=== PATIENT | female | born 1965 | race Caucasian/White ===

== ENCOUNTER 2016-10-28 18:11 | Emergency (ER) | payer OTHER ==
[2016-10-28 18:15] VITALS: BP 178/97; PULSE 65; TEMP 97.9; BMI 27.1
[2016-10-28] MEDS ORDERED: SODIUM CHLORIDE 1,000 ML IV STA (19:15)
[2016-10-28] MEDS ORDERED: morphine CARPU-JECT 4 MG/1 ML DISP.SYRIN IVPUSH ONE (19:15)
[2016-10-28] MEDS ORDERED: ONDANSETRON 4 MG/2 ML VIAL IVPB ONE (19:15)
[2016-10-28] MEDS ORDERED: ONDANSETRON 4 MG/2 ML VIAL ONE (19:31)
[2016-10-28] MEDS ORDERED: morphine CARPU-JECT 4 MG/1 ML DISP.SYRIN ONE (19:31)
[2016-10-28 19:59] LABS: BASOPHIL 0.6 % (0-2.0); EOSINOPHIL 2.5 % (0-4.5); MCH 25.2 pg (25.7-33.7); MCHC 31.9 g/dl (32.0-36.0); MEAN PLT VOLUME 8.6 fl (7.5-11.1); NEUTROPHILS 52.3 % (42.8-82.8); PLATELET COUNT 257 K/MM3 (134-434); WHITE BLOOD COUNT 5.2 K/mm3 (4.0-10.0)
[2016-10-28 20:04] LABS: URINE APPEARANCE SLCLOUDY; URINE BILIRUBIN NEGATIVE (NEGATIVE); URINE BLOOD NEGATIVE (NEGATIVE); URINE COLOR LTYELLOW; URINE GLUCOSE (UA) NEGATIVE (NEGATIVE); URINE KETONE NEGATIVE (NEGATIVE); URINE NITRITE NEGATIVE (NEGATIVE); URINE PROTEIN NEGATIVE (NEGATIVE); URINE UROBILINOGEN NEGATIVE E.U./dl (0.2-1.0)
[2016-10-28 20:05] LABS: URINE LEUK ESTERASE 3+ (NEGATIVE)
[2016-10-28 20:09] LABS: INR 1.05 (0.82-1.09); PROTHROMBIN TIME (PATIENT) 11.6 SEC (9.98-11.88)
[2016-10-28 20:12] LABS: ACTIVATED PTT 33.1 SECONDS (26.9-34.4)
[2016-10-28 20:20] LABS: ALBUMIN 3.6 g/dl (3.4-5.0); ANION GAP 7 (8-16); BILIRUBIN,TOTAL 0.2 mg/dL (0.2-1.0); CALCIUM 8.8 mg/dL (8.5-10.1); CO2 29 mmol/L (21-32); CREATININE 0.5 mg/dL (0.55-1.02); GLUCOSE,RANDOM 115 mg/dL (74-106); SGOT/AST 29 U/L (15-37); SGPT/ALT 32 U/L (12-78); TOT PROT 7.6 g/dl (6.4-8.2)
[2016-10-28 20:23] LABS: ALK PHOS 85 U/L (45-117); TROPONIN I < 0.02 ng/ml (0.00-0.05)
--- NOTE | 2016-10-28 20:34 | PDOC ---
History of Present Illness - General History Source: Patient Exam Limitations: No Limitations - History of Present Illness Initial Comments: 10/28/16 20:42 The patient is a 51 year old female with a significant past medical history of diabetes, HTN, and HLD who presents to the ED with complaints of flu like symptoms for 3 weeks and abdominal pain since yesterday morning. Patient reports intermittent subjective fever, chills, generalized body aches, a dry cough, and chest congestion for three weeks. She states she developed generalized abdominal pain yesterday morning with 4 episodes of vomiting and diarrhea every half hour. Patient states vomiting has subsided. She also reports a loss of appetite associated with present symptoms. Denies chest pain or shortness of breath. Denies dysuria or changes in urinary output. Denies any other symptoms. <Bob Cabrera - Last Filed: 10/28/16 22:03> - General History Source: Patient, Family Exam Limitations: No Limitations <iJ Rubin - Last Filed: 10/28/16 22:22> - General Chief Complaint: Pain, Acute Stated Complaint: VOMITING/DIARRHEA Time Seen by Provider: 10/28/16 19:06 Past History <Bob Cabrera - Last Filed: 10/28/16 22:03> - Past Medical History Cardiac Disorders: Yes (MURMUR) Diabetes: Yes HTN: Yes - Psycho/Social/Smoking Cessation Hx Suicidal Ideation: No Smoking History: Never smoked Hx Alcohol Use: No Drug/Substance Use Hx: No <Ji Rubin - Last Filed: 10/28/16 22:22> - Past Medical History Allergies/Adverse Reactions: Allergies Allergy/AdvReac Type Severity Reaction Status Date / Time No Known Allergies Allergy Verified 10/28/16 18:15 Home Medications: Ambulatory Orders Ciprofloxacin [Cipro -] 500 mg PO Q12H #14 tablet 10/28/16 Naproxen [Naprosyn -] 500 mg PO BID PRN #20 tablet 10/28/16 Ondansetron HCl [Zofran] 4 mg PO Q8H PRN #12 tablet 10/28/16 Review of Systems - Review of Systems Able to Perform ROS?: Yes Comments:: 10/28/16 20:42 GENERAL/CONSTITUTIONAL: + fever, chills, body aches. No weakness. HEAD, EYES, EARS, NOSE AND THROAT: No change in vision. No ear pain or discharge. No sore throat. CARDIOVASCULAR: No chest pain or shortness of breath. RESPIRATORY: + cough, chest congestion. No wheezing or hemoptysis. GASTROINTESTINAL: + abdominal pain, nausea, vomiting, diarrhea. No constipation. GENITOURINARY: No dysuria, frequency, or change in urination. MUSCULOSKELETAL: No joint or muscle swelling or pain. No neck or back pain. SKIN: No rash NEUROLOGIC: No headache, vertigo, loss of consciousness, or change in strength/ sensation. ENDOCRINE: No increased thirst. No abnormal weight change. HEMATOLOGIC/LYMPHATIC: No anemia, easy bleeding, or history of blood clots. ALLERGIC/IMMUNOLOGIC: No hives or skin allergy. All Other Systems: Reviewed and Negative <Bob Cabrera - Last Filed: 10/28/16 22:03> *Physical Exam - Vital Signs Last Vital Signs Temp Pulse Resp BP Pulse Ox 97.9 F 65 18 178/97 98 10/28/16 18:12 10/28/16 18:12 10/28/16 18:12 10/28/16 18:12 10/28/16 18:12 - Physical Exam Comments: 10/28/16 20:43 GENERAL: Awake, alert, and fully oriented, in no acute distress HEAD: No signs of trauma EYES: PERRLA, EOMI, sclera anicteric, conjunctiva clear ENT: Auricles normal inspection, hearing grossly normal, nares patent, oropharynx clear without exudates. Moist mucosa NECK: Normal ROM, supple, no lymphadenopathy, JVD, or masses LUNGS: Breath sounds equal, clear to auscultation bilaterally. No wheezes, and no crackles HEART: Regular rate and rhythm, normal S1 and S2, no murmurs, rubs or gallops ABDOMEN:+ Diffuse abdominal tenderness. Soft, normoactive bowel sounds. No guarding, no rebound. No masses EXTREMITIES: Normal range of motion, no edema. No clubbing or cyanosis. No cords, erythema, or tenderness NEUROLOGICAL: Normal speech SKIN: Warm, Dry, normal turgor, no rashes or lesions noted. <Bob Cabrera - Last Filed: 10/28/16 22:03> - Vital Signs Last Vital Signs Temp Pulse Resp BP Pulse Ox 97.9 F 65 18 178/97 98 10/28/16 18:12 10/28/16 18:12 10/28/16 18:12 10/28/16 18:12 10/28/16 18:12 <Ji Rubin - Last Filed: 10/28/16 22:22> Heart Score/ECG Review #1 ECG reviewed & interpreted by me at: 19:45 10/28/16 20:35 NSR 62, no std/eugenio, normal axis, normal intervals, QTC 438 msec <Ji Rubin - Last Filed: 10/28/16 22:22> ED Treatment Course - LABORATORY CBC & Chemistry Diagram: 10/28/16 19:29 10/28/16 19:29 - ADDITIONAL ORDERS Additional order review: Laboratory Results 10/28/16 10/28/16 19:29 19:29 Sodium 140 Potassium 4.3 Chloride 104 Carbon Dioxide 29 Anion Gap 7 L BUN 7 Creatinine 0.5 L Creat Clearance w eGFR > 60 Random Glucose 115 H Calcium 8.8 Total Bilirubin 0.2 AST 29 ALT 32 Alkaline Phosphatase 85 Creatine Kinase 169 CK-MB (CK-2) 1.318 Troponin I < 0.02 Total Protein 7.6 Albumin 3.6 Lipase 168 Urine Color Ltyellow Urine Appearance Slcloudy Urine pH 7.0 Urine Protein Negative Urine Glucose (UA) Negative Urine Ketones Negative Urine Blood Negative Urine Nitrite Negative Urine Bilirubin Negative Urine Urobilinogen Negative Ur Leukocyte Esterase 3+ H Urine RBC 2 Urine WBC 112 Ur Epithelial Cells Moderate Urine Bacteria Rare 10/28/16 19:29 RBC 4.57 MCV 79.0 L MCHC 31.9 L RDW 15.0 MPV 8.6 Neutrophils % 52.3 Lymphocytes % 34.3 Monocytes % 10.3 H Eosinophils % 2.5 Basophils % 0.6 - RADIOLOGY Radiograph Interpretation: 10/28/16 20:50 RAD/CHEST X-RAY PORTABLE Impression: No acute disease. Reported by: James Gomes 10/28/16 22:03 CT/ABDOMEN & PELVIS CT WITH CONTR Impression: Limited study, essentially normal CT scan of the abdomen and pelvis with no evidence of acute pathology. Reported by: James Gomes - Medications Given in the ED: ED Medications Discontinued Medications Generic Name Dose Route Start Last Admin Trade Name Freq PRN Reason Stop Dose Admin Sodium Chloride 1,000 mls @ 1,000 mls/hr 10/28/16 19:15 10/28/16 19:37 Normal Saline - IV 10/28/16 20:14 1,000 mls/hr ASDIR STA Administration Morphine Sulfate 4 mg 10/28/16 19:15 10/28/16 19:37 Morphine Injection - IVPUSH 10/28/16 19:16 4 mg ONCE ONE Administration Ondansetron HCl 4 mg 10/28/16 19:15 10/28/16 19:37 Zofran Injection IVPB 10/28/16 19:16 4 mg ONCE ONE Administration <Bob Cabrera - Last Filed: 10/28/16 22:03> - LABORATORY CBC & Chemistry Diagram: 10/28/16 19:29 10/28/16 19:29 - ADDITIONAL ORDERS Additional order review: Laboratory Results 10/28/16 10/28/16 19:29 19:29 Sodium 140 Potassium 4.3 Chloride 104 Carbon Dioxide 29 Anion Gap 7 L BUN 7 Creatinine 0.5 L Creat Clearance w eGFR > 60 Random Glucose 115 H Calcium 8.8 Total Bilirubin 0.2 AST 29 ALT 32 Alkaline Phosphatase 85 Creatine Kinase 169 Troponin I < 0.02 Total Protein 7.6 Albumin 3.6 Lipase 168 Urine Color Ltyellow Urine Appearance Slcloudy Urine pH 7.0 Urine Protein Negative Urine Glucose (UA) Negative Urine Ketones Negative Urine Blood Negative Urine Nitrite Negative Urine Bilirubin Negative Urine Urobilinogen Negative Ur Leukocyte Esterase 3+ H 10/28/16 19:29 RBC 4.57 MCV 79.0 L MCHC 31.9 L RDW 15.0 MPV 8.6 Neutrophils % 52.3 Lymphocytes % 34.3 Monocytes % 10.3 H Eosinophils % 2.5 Basophils % 0.6 - RADIOLOGY Radiology Studies Ordered: Category Date Time Status ABDOMEN & PELVIS CT WITH CONTR [CT] Stat CT Scan 10/28/16 19:15 Ordered CHEST X-RAY PORTABLE* [RAD] Stat Radiology 10/28/16 19:15 Completed - Medications Given in the ED: ED Medications Discontinued Medications Generic Name Dose Route Start Last Admin Trade Name Freq PRN Reason Stop Dose Admin Sodium Chloride 1,000 mls @ 1,000 mls/hr 10/28/16 19:15 10/28/16 19:37 Normal Saline - IV 10/28/16 20:14 1,000 mls/hr ASDIR STA Administration Morphine Sulfate 4 mg 10/28/16 19:15 10/28/16 19:37 Morphine Injection - IVPUSH 10/28/16 19:16 4 mg ONCE ONE Administration Ondansetron HCl 4 mg 10/28/16 19:15 10/28/16 19:37 Zofran Injection IVPB 10/28/16 19:16 4 mg ONCE ONE Administration <CarynJi - Last Filed: 10/28/16 22:22> Medical Decision Making - Medical Decision Making 10/28/16 20:32 A portion of this note was documented by scribe services under my direction. I have reviewed the details of the note, within reason, and agree with the documentation with the following case summary and management plan written by me. Patient treated in the ED. Nursing notes are reviewed and incorporated into the medical decision-making. Vital signs reviewed. Peripheral IV access obtained by the nurse, laboratory studies are drawn and sent, reviewed and interpreted by myself. Vital Signs Temp Pulse Resp BP Pulse Ox 97.9 F 65 18 178/97 98 10/28/16 18:12 10/28/16 18:12 10/28/16 18:12 10/28/16 18:12 10/28/16 18:12 51-year-old female with past medical history of hypertension, diabetes, hyperlipidemia presents with diffuse abdominal pain since yesterday. Patient reports that the pain is constant and associated with nausea and vomiting. Also reports some loose diarrhea. Denies sick contacts or recent travels. Also endorses tactile fevers. Incidentally, states that the patient's been having some dry cough for 3 weeks that has not improved. Denies chest pain or shortness of breath. Differential includes appendicitis, gastroenteritis, colitis, diverticulitis, cystitis. We'll obtain a CAT scan, labs and treat symptoms. We'll also obtain a chest x-ray to rule out pneumonia. Reassess. 10/28/16 22:15 CBC, BMP 10/28/16 19:29 10/28/16 19:29 CMP Sodium 140 mmol/L (136-145) 10/28/16 19:29 Potassium 4.3 mmol/L (3.5-5.1) 10/28/16 19:29 Chloride 104 mmol/L (98-107) 10/28/16 19:29 Carbon Dioxide 29 mmol/L (21-32) 10/28/16 19:29 Anion Gap 7 (8-16) L 10/28/16 19:29 BUN 7 mg/dL (7-18) 10/28/16 19: Creatinine 0.5 mg/dL (0.55-1.02) L 10/28/16 19:29 Creat Clearance w eGFR > 60 (>60) 10/28/16 19:29 Random Glucose 115 mg/dL (74-106) H 10/28/16 19: Calcium 8.8 mg/dL (8.5-10.1) 10/28/16 19: Total Bilirubin 0.2 mg/dL (0.2-1.0) 10/28/16 19: AST 29 U/L (15-37) 10/28/16 19: ALT 32 U/L (12-78) 10/28/16 19: Alkaline Phosphatase 85 U/L (45-117) 10/28/16 19: Creatine Kinase 169 IU/L (26-192) 10/28/16 19: CK-MB (CK-2) 1.318 ng/ml (0.5-3.6) 10/28/16 19: Troponin I < 0.02 ng/ml (0.00-0.05) 10/28/16 19: Total Protein 7.6 g/dl (6.4-8.2) 10/28/16 19: Albumin 3.6 g/dl (3.4-5.0) 10/28/16 19: Lipase 168 U/L (73-393) 10/28/16 19:29 Urine Test Results Urine Color Ltyellow 10/28/16 19:29 Urine Appearance Slcloudy 10/28/16 19: Urine pH 7.0 (5.0-8.0) 10/28/16 19:29 Urine Protein Negative (NEGATIVE) 10/28/16 19: Urine Glucose (UA) Negative (NEGATIVE) 10/28/16 19: Urine Ketones Negative (NEGATIVE) 10/28/16 19: Urine Blood Negative (NEGATIVE) 10/28/16 19: Urine Nitrite Negative (NEGATIVE) 10/28/16 19: Urine Bilirubin Negative (NEGATIVE) 10/28/16 19: Ur Leukocyte Esterase 3+ (NEGATIVE) H 06/16/17 19:29 Urine RBC 2 /hpf (0-3) 10/28/16 19:29 Urine WBC 112 /hpf (3-5) 10/28/16 19:29 Ur Epithelial Cells Moderate /hpf (FEW) 10/28/16 19:29 Urine Bacteria Rare /hpf (NONE SEEN) 10/28/16 19:29 CAT scan the abdomen pelvis demonstrates no acute findings. Chest xray reviewed. No acute findings. The patient for feels much better. This is likely cystitis. We'll give a dose of Levaquin and discharge her ciprofloxacin. Patient feels comfortable going home. We'll go home with her son. Return precautions given. Patient given a copy of results. I discussed the physical exam findings, ancillary test results and final diagnoses with the patient. I answered all of the patient's questions. The patient was satisfied with the care received and felt comfortable with the discharge plan and treatment plan. The patient will call their primary care physician within 24 hours to arrange follow-up and will return to the Emergency Department with any new, persistant or worsening symptoms. <Ji Rubin - Last Filed: 10/28/16 22:22> *DC/Admit/Observation/Transfer - Attestations Scribe Attestion: 10/28/16 20:43 Documentation prepared by Bob Cabrera, acting as phlebotomist medical lab assistant for Ji Rubin MD <Bob Cabrera - Last Filed: 10/28/16 22:03> - Discharge Dispostion Admit: No <Ji Rubin - Last Filed: 10/28/16 22:22> Diagnosis at time of Disposition: Cystitis - Discharge Dispostion Disposition: HOME Condition at time of disposition: Improved - Prescriptions Prescriptions: Ciprofloxacin [Cipro -] 500 mg PO Q12H #14 tablet Naproxen [Naprosyn -] 500 mg PO BID PRN #20 tablet PRN Reason: Pain Ondansetron HCl [Zofran] 4 mg PO Q8H PRN #12 tablet PRN Reason: Nausea - Patient Instructions Printed Discharge Instructions: DI for Urinary Tract Infection (UTI) Additional Instructions: Please take the ciprofloxacin every 12 hours for the next 7 days. Please drink plenty of fluids and rest. Follow up with your doctor. Your CT scan of the abdomen and pelvis and chest xray is normal. Your urine has an infection. Please follow up with your doctor.
[2016-10-28 20:36] LABS: URINE BACTERIA RARE /hpf (NONE SEEN); URINE RBC 2 /hpf (0-3); URINE WBC 112 /hpf (3-5)
[2016-10-28] MEDS ORDERED: LEVOFLOXACIN 500 MG TABLET (FP) PO ONE (22:15)
[2016-10-28] MEDS ORDERED: LEVOFLOXACIN 500 MG TABLET (FP) ONE (22:33)
--- NOTE | 2016-10-29 09:55 | EKG ---
Test Reason : Blood Pressure : / mmHG Vent. Rate : 062 BPM Atrial Rate : 062 BPM P-R Int : 172 ms QRS Dur : 092 ms QT Int : 432 ms P-R-T Axes : 034 012 030 degrees QTc Int : 438 ms NORMAL SINUS RHYTHM INCOMPLETE RBBB NO PREVIOUS ECGS AVAILABLE Confirmed by SUSAN JOHANSEN MD ([id number]) on 10/29/2016 9:55:07 AM Referred By: Confirmed By:SUSAN JOHANSEN MD
== END 2016-10-28 22:57 | disposition home or self-care (01) ==
LOC: JER 18:11
PROC: 3E033NZ Introduction of Analgesics, Hypnotics, Sedatives into Peripheral Vein, Percutaneous Approach (ICD-10-PCS; principal; 2016-10-28)
PROC: 3E033GC Introduction of Other Therapeutic Substance into Peripheral Vein, Percutaneous Approach (ICD-10-PCS; 2016-10-28)
DX: N30.00 Acute cystitis without hematuria (principal); I10 Essential (primary) hypertension; E11.9 Type 2 diabetes mellitus without complications; E78.00 Pure hypercholesterolemia, unspecified; Z79.4 Long term (current) use of insulin
CPT/HCPCS: 36415; 71010-TC; 74177-TC; 80053; 81003; 81015; 82550; 82553; 83690; 84484; 85025; 85610; 85730; 87086; 93005; 93010; 96374; 96375; 99281-25; 99283-25

== ENCOUNTER 2017-04-05 18:01 | Emergency (ER) | payer OTHER ==
[2017-04-05 18:07] VITALS: BP 139/55; PULSE 68; TEMP 98; BMI 28.1
[2017-04-05] MEDS ORDERED: ACETAMINOPHEN 500 MG TABLET (FP) PO ONE (18:08)
--- NOTE | 2017-04-05 18:08 | PDOC ---
Rapid Medical Evaluation Time Seen by Provider: 04/05/17 18:03 Medical Evaluation: Allergies Allergy/AdvReac Type Severity Reaction Status Date / Time No Known Allergies Allergy Verified 10/28/16 18:15 04/05/17 18:04 I have performed a brief in person evaluation of this patient. The patient presents with chief complaint of : cough for one week with fever, and headache . took tylenol at 9am Pertinent PE findings: I have ordered the following: tylenol 975mg , CXR, flu swab The patient will proceed to the ER for further evaluation.
[2017-04-05] MEDS ORDERED: ACETAMINOPHEN 325 MG TABLET (FP) ONE (18:21)
--- NOTE | 2017-04-05 19:12 | PDOC ---
History of Present Illness - General Chief Complaint: Cold Symptoms Stated Complaint: COUGHING Time Seen by Provider: 04/05/17 18:03 - History of Present Illness Initial Comments: 04/05/17 19:05 CHIEF COMPLAINT: cold symptoms HISTORY OF PRESENT ILLNESS: 51 yo F with hx of diabetes, HTN, and HLD presents to [facility] with cold symptoms x 1 week. Patient reports coughing for a week as well as a headache, and difficulty taking deep breaths. She reports having a fever but does not know what the temperature was. She reports nausea but no vomiting. PAST MEDICAL HISTORY:as per HPI FAMILY HISTORY: Denies SOCIAL HISTORY: Lives at home with son. Denies tobacco, alcohol, illicit drug use. SURGICAL HISTORY: Denies ALLERGIES: No known drug allergies REVIEW OF SYSTEMS General/Constitutional: Subjective fever, chills. Denies weakness. HEENT: Denies change in vision. Denies ear pain or discharge. Denies sore throat. Cardiovascular: Denies chest pain or shortness of breath. Respiratory: Cough x 1 week. Gastrointestinal: Denies nausea, vomiting, diarrhea or constipation. Denies rectal bleeding. Genitourinary: Denies dysuria, frequency, or change in urination. Musculoskeletal: Denies joint or muscle swelling or pain. Denies neck or back pain. Skin and breasts: Denies rash or easy bruising. Neurologic: Headache. Denies vertigo, loss of consciousness, or loss of sensation. PHYSICAL EXAM General Appearance: Well-appearing, appropriately dressed. No apparent distress. HEENT: EOMI, PERRLA, normal ENT inspection, normal voice, TMs normal, pharynx normal. No conjunctival pallor. No photophobia, scleral icterus. Respiratory/Chest: Patient with minimal SOB. Lungs CTAB. No chest tenderness, respiratory distress, accessory muscle use. No crackles, rales, rhonchi, stridor , wheezing, dullness Cardiovascular: RRR. S1, S2. Gastrointestinal/Abdominal: Normal bowel sounds. Abdomen soft, non-distended. No tenderness or rebound tenderness. No organomegaly, pulsatile mass, guarding , hernia, hepatomegaly, splenomegaly. Musculoskeletal/Extremities: Normal inspection. FROM of all extremities, normal capillary refill. Pelvis Stable. No CVA tenderness. No tenderness to extremities, pedal edema, swelling, erythema or deformity. Integumentary: Appropriate color, dry, warm. 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 Fully oriented, alert. Appropriate mood/affect. Motor strength 5/5. No appreciable EOM palsy, facial droop or sensory deficit. Past History - Past Medical History Allergies/Adverse Reactions: Allergies Allergy/AdvReac Type Severity Reaction Status Date / Time No Known Allergies Allergy Verified 04/05/17 18:07 Home Medications: Ambulatory Orders Albuterol Sulfate Inhaler - [Ventolin HFA Inhaler -] 1 - 2 inh PO Q6H PRN #1 inhaler 04/05/17 Aspirin [Aspirin EC] 81 mg PO ASDIR 04/05/17 Azithromycin [Zithromax 250mg Tablets -] 250 mg PO ASDIR #6 tablet 04/05/17 Glipizide [Glipizide Xl] 10 mg PO ASDIR 04/05/17 Ibuprofen [Motrin -] 600 mg PO TID PRN #21 tablet 04/05/17 Lisinopril 10 mg PO ASDIR 04/05/17 Metformin HCl [Metformin HCl ER] 1,000 mg PO ASDIR 04/05/17 Pravastatin Sodium 20 mg PO ASDIR 04/05/17 Cardiac Disorders: Yes (MURMUR) COPD: No Diabetes: Yes HTN: Yes - Suicide/Smoking/Psychosocial Hx Smoking History: Never smoked Hx Alcohol Use: No Drug/Substance Use Hx: No Substance Use Type: None *Physical Exam - Vital Signs Last Vital Signs Temp Pulse Resp BP Pulse Ox 98.0 F 68 20 139/55 98 04/05/17 18:03 04/05/17 18:03 04/05/17 18:03 04/05/17 18:03 04/05/17 18:03 ED Treatment Course - ADDITIONAL ORDERS Additional order review: 04/05/17 18:15 Influenza Types A,B Antigen (JUVE) - Final Nasopharyngeal Swab - Final - Medications Given in the ED: ED Medications Discontinued Medications Generic Name Dose Route Start Last Admin Trade Name Freq PRN Reason Stop Dose Admin Acetaminophen 975 mg 04/05/17 18:08 04/05/17 18:24 Tylenol - PO 04/05/17 18:09 975 mg ONCE ONE Administration Medical Decision Making - Medical Decision Making 04/05/17 19:19 51 yo F with hx of diabetes, HTN, and HLD presents to [facility] with cold symptoms x 1 week with mild SOB . -Duoneb -CXR -flu swab CXR negative, flu negative. Given duration of symptoms and comorbidities, will rx antibiotics. -Kit sent to pharm. Advised patient to take medication as prescribed and follow up with PCP next week. Advised patient of signs and symptoms for return to ED. Patient verbalized understanding and agrees to plan. *DC/Admit/Observation/Transfer Diagnosis at time of Disposition: Acute asthmatic bronchitis - Discharge Dispostion Disposition: HOME Condition at time of disposition: Stable Admit: No - Prescriptions Prescriptions: Albuterol Sulfate Inhaler - [Ventolin HFA Inhaler -] 1 - 2 inh PO Q6H PRN #1 inhaler PRN Reason: Shortness Of Breath Azithromycin [Zithromax 250mg Tablets -] 250 mg PO ASDIR #6 tablet Ibuprofen [Motrin -] 600 mg PO TID PRN #21 tablet PRN Reason: fever or headache - Referrals - Patient Instructions Printed Discharge Instructions: DI for Acute Bronchitis Additional Instructions: Please take medications as prescribed and complete the entire course of antibiotics. If you develop high fever, vomiting, diarrhea, chest pain, headache, palpitations, weakness, or any new or worsening symptoms, please return to the ER. Por favor tome los medicamentos segn lo recetado y complete todo el curso de antibiticos. Si desarrolla fiebre katlin, vmitos, diarrea, dolor en el pecho, dolor de shaila, palpitaciones, debilidad o cualquier sntoma nuevo o que empeora, regrese a la milan de emergencias. Print Language: CITIZ[place] - Post Discharge Activity
[2017-04-05] MEDS ORDERED: ALBUTEROL SO4 2.5/IPRATROPIUM 0.5 INH SOL 3 ML VIAL.NEB. NEB ONE ×2 (19:16→19:17)
== END 2017-04-05 19:39 | disposition home or self-care (01) ==
LOC: JERFT 18:01
PROC: 3E0F7GC Introduction of Other Therapeutic Substance into Respiratory Tract, Via Natural or Artificial Opening (ICD-10-PCS; principal; 2017-04-05)
DX: J45.909 Unspecified asthma, uncomplicated (principal); I10 Essential (primary) hypertension; E11.9 Type 2 diabetes mellitus without complications; Z79.84 Long term (current) use of oral hypoglycemic drugs; Z79.82 Long term (current) use of aspirin
CPT/HCPCS: 71020-TC; 87804; 99281-25

== ENCOUNTER 2019-12-22 09:33 | Emergency (ER) | payer OTHER ==
[2019-12-22 09:41] VITALS: BP 161/84; PULSE 62; TEMP 98; BMI 27.1
[2019-12-22] MEDS ORDERED: LIDOCAINE VISCOUS 2% ORAL/TOP 20 ML UNIT-DOSE CUP MM ONE (09:50)
[2019-12-22] MEDS ORDERED: KETOROLAC TROMETHAMINE 30 MG/1 ML VIAL IM ONE (09:50)
[2019-12-22] MEDS ORDERED: KETOROLAC TROMETHAMINE 30 MG/1 ML VIAL ONE (09:54)
--- NOTE | 2019-12-22 09:54 | PDOC ---
History of Present Illness - General Chief Complaint: Toothache Stated Complaint: TOOTHACHE Time Seen by Provider: 12/22/19 09:47 History Source: Patient Exam Limitations: No Limitations - History of Present Illness Initial Comments: 12/22/19 09:50 54-year-old female past medical history hypertension diabetes presenting with toothache for 1 day. Patient states that she has tooth pain radiating to her ear without associated fever chills nausea vomiting. Patient plans to see a dentist tomorrow and is just requesting pain medication. Pt otherwise denies: fevers, chills, syncope, lightheadedness, dizziness, headaches, neck pain, chest pain, shortness of breath, palpitations, back pain, abdominal pain, nausea, vomiting, diarrhea, constipation. Past History - Medical History Allergies/Adverse Reactions: Allergies Allergy/AdvReac Type Severity Reaction Status Date / Time No Known Allergies Allergy Verified 12/22/19 09:41 Home Medications: Ambulatory Orders Albuterol Sulfate Inhaler - [Ventolin HFA Inhaler -] 1 - 2 inh PO Q6H PRN #1 inhaler 04/05/17 Aspirin [Aspirin EC] 81 mg PO ASDIR 04/05/17 Azithromycin [Zithromax 250mg Tablets -] 250 mg PO ASDIR #6 tablet 04/05/17 Glipizide [Glipizide Xl] 10 mg PO ASDIR 04/05/17 Ibuprofen [Motrin -] 600 mg PO TID PRN #21 tablet 04/05/17 Lisinopril 10 mg PO ASDIR 04/05/17 Pravastatin Sodium 20 mg PO ASDIR 04/05/17 metFORMIN HCL [Metformin HCl ER] 1,000 mg PO ASDIR 04/05/17 Chlorhexidine Gluconate [Peridex -] 15 ml MM ONCE #1 bottle 12/22/19 Ibuprofen [Ibu] 600 mg PO TID #25 tablet 12/22/19 Cardiac Disorders: Yes (MURMUR) COPD: No Diabetes: Yes HTN: Yes - Reproductive History Is Patient Now?: No - Psycho-Social/Smoking History Smoking History: Never smoked - Substance Abuse Hx (Audit-C & DAST Scrn) How often the patient has a drink containing alcohol: Never Score: In Men: 4 or > Positive; In Women: 3 or > Positive: 0 Screen Result (Pos requires Nsg. Audit-10AR): Negative *Physical Exam - Vital Signs Last Vital Signs Temp Pulse Resp BP Pulse Ox 98 F 62 18 161/84 99 12/22/19 09:38 12/22/19 09:38 12/22/19 09:38 12/22/19 09:38 12/22/19 09:38 - Physical Exam 12/22/19 09:51 Gen: AAOx 3, no acute distress, comfortable, no signs of respiratory distress HENT: atraumatic, normocephalic with no laceration or contusion. Nasal mucosa without erythema. Oropharynx without erythema or exudates. Mucous membranes moist. Dental: poor dental hygiene Tooth number 8 loose with gum disease no surrounding erythema or signs of infection EYES: PERRL, EOM intact, conjunctiva pink NECK: supple; trachea midline; no JVD, no lymphadenopathy, or thyromegaly CV: RRR no murmurs, gallops, or rubs. CHEST: CTA b/l no wheezing, rales or rhonchi ABD: +BS/ND. no TTP; soft, no rebound, no guarding EXTREMITY: no cyanosis or erythema. 2+ dorsalis pedis, posterior tibial, and radial pulse. No pedal edema; no calf swelling or tenderness SKIN: no rash, warm and dry, no diaphoresis HEME: no purpura or ecchymosis NEURO: normal speech, CN II-XII intact, sensation intact, normal gait, no cerebellar deficits MS: 5/5 strength in all extremities, FROM intact in all extremities. Medical Decision Making - Medical Decision Making 12/22/19 09:52 54-year-old female with toothache Vital signs stable We will give Toradol and viscous lidocaine for symptomatic relief We will discharge patient with ibuprofen Peridex and close follow-up with dental Patient appears well safe or stable for discharge patient to follow-up with dental clinic and PCP Strict return precautions given Supportive care instructions explained and given to pt. Reasons to return emergently to ER explained and given. Importance of follow up with PMD and other specialists as indicated stressed to pt. Pt verbalized understanding of instructions. Pt to follow up with PMD in 2 days. Discharge - Discharge Information Problems reviewed: Yes Clinical Impression/Diagnosis: Pain, dental Condition: Stable Disposition: HOME - Additional Discharge Information Prescriptions: Ibuprofen [Ibu] 600 mg PO TID #25 tablet Chlorhexidine Gluconate [Peridex -] 15 ml MM ONCE #1 bottle - Follow up/Referral - Patient Discharge Instructions Patient Printed Discharge Instructions: DI for Dental Pain Additional Instructions: YOU MUST SEE A DENTIST DEBO - Post Discharge Activity
[2019-12-22] MEDS ORDERED: LIDOCAINE VISCOUS 2% ORAL/TOP 20 ML UNIT-DOSE CUP ONE (09:55)
== END 2019-12-22 10:25 | disposition home or self-care (01) ==
LOC: JERFT 09:33
PROC: 3E023GC Introduction of Other Therapeutic Substance into Muscle, Percutaneous Approach (ICD-10-PCS; principal; 2019-12-22)
DX: K08.89 Other specified disorders of teeth and supporting structures (principal)
CPT/HCPCS: 99284-25

== ENCOUNTER 2020-02-02 22:02 | Emergency (ER) | payer OTHER ==
[2020-02-02 22:10] VITALS: BP 166/81; PULSE 65; TEMP 97.5; BMI 28.0
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
[2020-02-02] MEDS ORDERED: DIPHTH,PERTUSS(ACELL),TET 0.5 ML DISP.SYRIN IM ONE ×2 (22:17→22:31)
[2020-02-02] MEDS ORDERED: SILVER SULFADIAZINE 1% TOP CREAM 50 GM JAR TP ONE (22:21)
[2020-02-02] MEDS ORDERED: BACITRACIN 15 GM TUBE TOPICAL OINTMENT TP ONE (22:25)
[2020-02-02] MEDS ORDERED: CEPHALEXIN MONOHYDRATE 500 MG CAPSULE (UD) PO ONE (22:26)
[2020-02-02] MEDS ORDERED: CEPHALEXIN MONOHYDRATE 500 MG CAPSULE (UD) ONE (22:31)
[2020-02-02] MEDS ORDERED: BACITRACIN 15 GM TUBE TOPICAL OINTMENT ONE (22:37)
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
== END 2020-02-03 00:27 | disposition short-term general hospital (02) ==
LOC: JER 22:02
PROC: 3E0234Z Introduction of Serum, Toxoid and Vaccine into Muscle, Percutaneous Approach (ICD-10-PCS; principal; 2020-02-02)
DX: T23.201A Burn of second degree of right hand, unspecified site, initial encounter (principal)
CPT/HCPCS: 90715; 99284-25

== ENCOUNTER 2022-08-01 19:29 | Emergency (ER) | payer OTHER ==
[2022-08-01 19:42] VITALS: BP 152/83; PULSE 68; RESP 20; TEMP 98; BMI 30.8
[2022-08-01] MEDS ORDERED: LIDOCAINE 5% TOPICAL PATCH TP ONE (21:23)
[2022-08-01] MEDS ORDERED: ACETAMINOPHEN 1000 MG/100 ML BAG IVPB ONE (21:23)
[2022-08-01] MEDS ORDERED: LIDOCAINE 5% TOPICAL PATCH ONE (21:43)
[2022-08-01] MEDS ORDERED: ACETAMINOPHEN INJECTION 100 ML IVPB ONE (21:43)
[2022-08-01 21:51] LABS: BASO % 0.6 % (0-2.0); EOS % 3.4 % (0-4.5); HEMATOCRIT 40.4 % (32.4-45.2); HEMOGLOBIN 13.7 GM/dL (10.7-15.3); LYMPH % 36.1 % (8-40); MCH 28.7 pg (25.7-33.7); MCHC 33.9 g/dl (32.0-36.0); MEAN CELL VOLUME 84.7 fl (80-96); MEAN PLT VOLUME 8.4 fl (7.5-11.1); MONO % 6.6 % (3.8-10.2); NEUT % 53.3 % (42.8-82.8); PLATELET COUNT 254 10^3/uL (134-434); RBC 4.77 M/mm3 (3.60-5.2); RDW 13.6 % (11.6-15.6); WHITE BLOOD COUNT 6.3 K/mm3 (4.0-10.0)
[2022-08-01] MEDS ORDERED: LIDOCAINE PATCH REMOVAL MC SCH (22:00)
[2022-08-01 22:21] LABS: CALCIUM 9.4 mg/dL (8.5-10.1)
[2022-08-01 22:22] LABS: BLOOD UREA NITROGEN 8.8 mg/dL (7-18)
[2022-08-01 22:25] LABS: CREATININE 0.6 mg/dL (0.55-1.3)
[2022-08-01 22:27] LABS: BILIRUBIN,TOTAL 0.2 mg/dL (0.2-1); TOT PROT 7.8 g/dl (6.4-8.2)
[2022-08-02] MEDS ORDERED: KETOROLAC TROMETHAMINE 30 MG/1 ML VIAL IVPUSH ONE (00:16)
[2022-08-02] MEDS ORDERED: diazePAM 2 MG TABLET PO ONE (00:17)
[2022-08-02] MEDS ORDERED: diazePAM 2 MG TABLET ONE (01:12)
[2022-08-02] MEDS ORDERED: KETOROLAC TROMETHAMINE 30 MG/1 ML VIAL ONE (01:12)
== END 2022-08-02 02:57 | disposition home or self-care (01) ==
LOC: JER 19:29
PROC: 3E0333Z Introduction of Anti-inflammatory into Peripheral Vein, Percutaneous Approach (ICD-10-PCS; principal; 2022-08-01)
PROC: 3E033NZ Introduction of Analgesics, Hypnotics, Sedatives into Peripheral Vein, Percutaneous Approach (ICD-10-PCS; 2022-08-01)
DX: R20.2 Paresthesia of skin (principal); R07.9 Chest pain, unspecified; M62.838 Other muscle spasm; M50.322 Other cervical disc degeneration at C5-C6 level
CPT/HCPCS: 36415; 70450-TC; 71046-TC-FY; 72125-TC; 80053; 84484; 85025; 93005; 93010; 99285-25